=== PATIENT | female | born 1955 | race Caucasian/White ===

== ENCOUNTER 2020-03-04 07:10 | Day surgery (SDC) | payer OTHER ==
[~2020-03-04] VITALS: Ht 172.7 cm; Wt 86.3 kg
[~2020-03-04 07:10] MED LIST: ALPR.25 PO; CIPR500 PO; COCONUT OIL1000 MG PO; ESCI10 PO; Flagyl500 MG PO; LEVO750 PO; MULVITMIND PO; POTA8; Percocet 5-3251 EACH PO; VITAMIN D-32000 UNIT PO
--- NOTE | 2020-03-04 07:40 | NUR ---
03/04/20 0740 Shirley Logan 1 TRY RIGHT HAND BLEW
== END 2020-03-04 09:13 | disposition home or self-care (01) ==
LOC: ORSCSDS 07:10
PROVIDERS: Internal Medicine Gastroenterology
PROC: 0DBM8ZX Excision of Descending Colon, Via Natural or Artificial Opening Endoscopic, Diagnostic (ICD-10-PCS; principal; 2020-03-04 08:30)
DX: Z12.11 Encounter for screening for malignant neoplasm of colon (principal); Z86.010 Personal history of colon polyps; K63.5 Polyp of colon; K57.30 Diverticulosis of large intestine without perforation or abscess without bleeding; Z79.899 Other long term (current) drug therapy
CPT/HCPCS: 88305; J0461; J2405; J2704; J7120